=== PATIENT | male | born 1990 | race Two or more races ===

== ENCOUNTER 2019-12-05 09:12 | Emergency (ER) | payer OTHER ==
[~2019-12-05] VITALS: Ht 182.9 cm; Wt 88.5 kg
[2019-12-05 09:48] VITALS: BP_SYST 115
--- NOTE | 2019-12-05 09:48 | NUR ---
Patient to ER bed 1 to gown for evaluation. Side rails up.
--- NOTE | 2019-12-05 09:58 | NUR ---
pt reports being stung in the ear by a bee yesterday. His ear and back of the neck became swollen. Pt also reports chest tightness since this am. Will continue to monitor.
[2019-12-05] MEDS ORDERED: NACL 0.9% 1,000 ML IV ONE (10:38)
[2019-12-05] MEDS ORDERED: FAMOTIDINE PF 20 MG/2 ML VIAL IVP ONE (10:45)
[2019-12-05] MEDS ORDERED: ALBUTEROL SULFATE 0.083% 2.5 MG/3 ML VIAL.NEB INH ONE (10:45)
[2019-12-05] MEDS ORDERED: IPRATROPIUM BROM 0.5 MG/2.5 ML VIAL.NEB (ATROVENT) INH ONE (10:45)
[2019-12-05] MEDS ORDERED: ONDANSETRON HCL 4 MG/2 ML VIAL IVP ONE (10:45)
[2019-12-05] MEDS ORDERED: methylPREDNISolone SOD SUCC/PF 62.5 MG/ML VIAL IVP ONE (10:45)
[2019-12-05] MEDS ORDERED: DIPHENHYDRAMINE INJ 50 MG/ML VIAL IVP ONE (10:45)
--- NOTE | 2019-12-05 10:45 | NUR ---
ER at bedside examining patient.
--- NOTE | 2019-12-05 11:00 | NUR ---
pt getting a breathing tx at the bedside
[2019-12-05 11:11] LABS: BASOPHILS % (AUTO) 0.2 % (0.0-2.0); EOSINOPHILS # (AUTO) 0.2 K/uL (0.0-0.4); EOSINOPHILS % (AUTO) 4.6 % (0.0-4.0); HEMATOCRIT 40.5 % (36-54); HEMOGLOBIN 13.4 g/dL (14.0-18.0); LYMPHOCYTES # (AUTO) 0.7 K/uL (1.0-5.5); LYMPHOCYTES % (AUTO) 16.4 % (20.5-51.5); MEAN CORPUSCULAR HEMOGLOBIN 32 pg (27-31); MEAN CORPUSCULAR HGB CONC 33 % (32-36); MEAN CORPUSCULAR VOLUME 96 fL (79.0-98.0); MONOCYTES # (AUTO) 0.5 K/uL (0.0-1.0); MONOCYTES % (AUTO) 12.1 % (1.7-9.3); NEUTROPHILS # (AUTO) 2.9 K/uL (1.8-7.7); NEUTROPHILS % (AUTO) 66.7 % (40.0-70.0); PLATELET COUNT (AUTO) 156 K/uL (130-430); RED BLOOD CELL COUNT(AUTO) 4.22 MIL/uL (4.2-6.2); RED CELL DISTRIBUTION WIDTH 13.4 % (9.0-15.0); WHITE BLOOD COUNT (AUTO) 4.4 K/uL (4.8-10.8)
--- NOTE | 2019-12-05 11:15 | NUR ---
# 20 gauge angiocath placed to lac. Use of asceptic technique. Opsite placed over site. Blood return noted. Blood for lab drawn from site. Flushed with 10 cc of normal saline. No evidence of infiltration noted. Patient tolerated well.
--- NOTE | 2019-12-05 11:20 | NUR ---
medicated the pt w/ Benadryl, Zofran, and Pepcid per MD order. Will reassess
[2019-12-05 11:26] LABS: PROTHROMBIN TIME 10.4 SECS (9.5-12.5)
[2019-12-05 11:27] LABS: ALBUMIN 3.9 g/dL (3.4-4.8); CALCIUM 8.7 mg/dL (8.4-11.0); CREATININE 0.93 mg/dL (0.55-1.30); POTASSIUM 4.9 mmol/L (3.5-5.1); TOTAL BILIRUBIN 0.5 mg/dL (0.0-1.0)
[2019-12-05] MEDS ORDERED: methylPREDNISolone SOD SUCC/PF 62.5 MG/ML VIAL ONE (11:59)
--- NOTE | 2019-12-05 12:30 | NUR ---
pt reports feeling better
[2019-12-05 13:15] LABS: BILIRUBIN,URINE NEGATIVE (NEGATIVE); BLOOD, URINE NEGATIVE (NEGATIVE); CLARITY/URINE CLEAR (CLEAR); COLOR,URINE YELLOW (YELLOW); GLUCOSE,URINE NEGATIVE (NEGATIVE); KETONES,URINE TRACE (NEGATIVE); LEUKOCYTE ESTERASE ,URINE NEGATIVE (NEGATIVE); NITRITE, URINE NEGATIVE (NEGATIVE); PROTEIN URINE NEGATIVE (NEGATIVE); UROBILINOGEN,URINE 0.2 (0.2-1.0)
[2019-12-05 13:49] VITALS: BP_SYST 118
--- NOTE | 2019-12-05 13:49 | NUR ---
Patient given written and verbal discharge instructions and verbalizes understanding. ER MD discussed with patient the results and treatment provided. Patient in stable condition. ID arm band removed. IV catheter removed intact and dressing applied, no active bleeding. Rx of BENADRYL, PEPCID, EPI PEN, PREDNISONE given. Patient educated on pain management and to follow up with PMD. Pain Scale 0/10. Opportunity for questions provided and answered. Medication side effect fact sheet provided.
== END 2019-12-05 13:49 | disposition home or self-care (01) ==
LOC: SED 09:12
DX: T63.441A Toxic effect of venom of bees, accidental (unintentional), initial encounter (principal); Y92.89 Other specified places as the place of occurrence of the external cause
CPT/HCPCS: 36415; 71045; 80053; 81003; 82150; 83605; 83690; 85025; 85610; 85730; 87040; 94640; 96374; 96375; 99284; J1200; J2405; J2930; J3490; J7030; J7613